=== PATIENT | male | born 1960 | race Two or more races ===

== ENCOUNTER 2016-05-12 13:30 | Outpatient (CLI) | payer MEDICARE, MEDICAID ==
[~2016-05-12 13:30] MED LIST: ACET-868 PO; AMLO2.5T PO; ATOR40TA PO; BENA20TA2 PO; CLON0.1T PO; DOCU-270 PO; ESCI10TA PO; ESOM40CA52 PO; INSU100V10 SQ; INSU100V3 SQ; LORA1TAB82 PO; METF500T4 PO; METO50TA3 PO; OXCA300T PO; RISP0.2515 PO; ZINC220T PO; ZOLP5TAB7 PO
== END 2016-05-12 23:59 | disposition home or self-care (01) ==
LOC: WOU 13:30
PROVIDERS: ATTEND Specialist
DX: S81.812A Laceration without foreign body, left lower leg, initial encounter (principal); W18.2XXA Fall in (into) shower or empty bathtub, initial encounter; Z91.81 History of falling; Y93.E1 Activity, personal bathing and showering; Y92.091 Bathroom in other non-institutional residence as the place of occurrence of the external cause; Z89.511 Acquired absence of right leg below knee; F21 Schizotypal disorder; F17.200 Nicotine dependence, unspecified, uncomplicated; I10 Essential (primary) hypertension; E78.5 Hyperlipidemia, unspecified; E11.9 Type 2 diabetes mellitus without complications; Z79.4 Long term (current) use of insulin
CPT/HCPCS: A6402; G0463

== ENCOUNTER 2016-05-19 13:55 | Outpatient (CLI) | payer MEDICARE, MEDICAID | END 2016-05-19 23:59 | disposition home or self-care (01) | DX: S81.811D Laceration without foreign body, right lower leg, subsequent encounter (principal); W18.2XXD Fall in (into) shower or empty bathtub, subsequent encounter; F21 Schizotypal disorder; Z89.511 Acquired absence of right leg below knee; F17.200 Nicotine dependence, unspecified, uncomplicated; Z88.1 Allergy status to other antibiotic agents; E11.9 Type 2 diabetes mellitus without complications; E78.5 Hyperlipidemia, unspecified; E11.42 Type 2 diabetes mellitus with diabetic polyneuropathy ==

== ENCOUNTER 2016-06-23 13:25 | Outpatient (CLI) | payer MEDICARE, MEDICAID | END 2016-06-23 23:59 | LOC: WOU 13:25 | PROVIDERS: ATTEND Specialist | DX: S80.212A Abrasion, left knee, initial encounter (principal); W05.0XXA Fall from non-moving wheelchair, initial encounter; Y92.89 Other specified places as the place of occurrence of the external cause; E11.9 Type 2 diabetes mellitus without complications; F25.0 Schizoaffective disorder, bipolar type; Z89.511 Acquired absence of right leg below knee; F17.200 Nicotine dependence, unspecified, uncomplicated; Z88.1 Allergy status to other antibiotic agents; I10 Essential (primary) hypertension | CPT/HCPCS: G0463 ==

== ENCOUNTER 2016-07-04 14:07 | Emergency (ER) | payer MEDICARE, MEDICAID ==
[~2016-07-04] VITALS: Ht 177.8 cm; Wt 106.6 kg
--- NOTE | 2016-07-04 14:26 | NUR ---
called in the WR, patient is not around
[2016-07-04 15:22] VITALS: BP 147/93
== END 2016-07-04 16:31 | disposition home or self-care (01) ==
LOC: ER 14:16
DX: H60.91 Unspecified otitis externa, right ear (principal); I10 Essential (primary) hypertension; E11.9 Type 2 diabetes mellitus without complications; F17.210 Nicotine dependence, cigarettes, uncomplicated; F10.20 Alcohol dependence, uncomplicated; F32.9 Major depressive disorder, single episode, unspecified; F41.9 Anxiety disorder, unspecified; I25.10 Atherosclerotic heart disease of native coronary artery without angina pectoris; Z79.4 Long term (current) use of insulin; Z88.1 Allergy status to other antibiotic agents; Z88.8 Allergy status to other drugs, medicaments and biological substances
CPT/HCPCS: 99283; A4606; Z7610

== ENCOUNTER 2016-07-21 13:35 | Outpatient (CLI) | payer MEDICARE, MEDICAID | END 2016-07-21 23:59 | disposition home health service (06) | LOC: WOU 13:35 | PROVIDERS: ATTEND Specialist | DX: S81.011A Laceration without foreign body, right knee, initial encounter (principal); W05.0XXA Fall from non-moving wheelchair, initial encounter; Y92.89 Other specified places as the place of occurrence of the external cause; Z89.511 Acquired absence of right leg below knee; F31.0 Bipolar disorder, current episode hypomanic; F17.200 Nicotine dependence, unspecified, uncomplicated; I10 Essential (primary) hypertension; E11.42 Type 2 diabetes mellitus with diabetic polyneuropathy; Z83.3 Family history of diabetes mellitus; Z81.8 Family history of other mental and behavioral disorders; Z82.49 Family history of ischemic heart disease and other diseases of the circulatory system; Z80.9 Family history of malignant neoplasm, unspecified | CPT/HCPCS: 11042; 82962; A6402 ==

== ENCOUNTER 2017-08-13 11:25 | Emergency (ER) | payer MEDICARE, MEDICAID ==
[~2017-08-13] VITALS: Ht 167.6 cm; Wt 104.3 kg
[~2017-08-13 11:25] MED LIST changes: -AMLO2.5T PO; +AMLO2.5T3 PO; -BENA20TA2 PO; +BENA20TA9 PO; +LORA-259 PO; -LORA1TAB82 PO; +METF-440 PO; -METF500T4 PO; +METO50TA16 PO; -METO50TA3 PO; -OXCA300T PO; +OXCA300T15 PO; -ZOLP5TAB7 PO; +ZOLP5TAB8 PO
--- NOTE | 2017-08-13 11:40 | NUR ---
PT REC'D TO ER VIA EMS LEFT LEG CUT TUESDAY WOUND CHECK VSS VLADIMIR LINDSAY . AWAITING EVALUATION BY ER PROVIDER.
[2017-08-13] MEDS ORDERED: INSU100I26 SQ (11:58)
[2017-08-13] MEDS ORDERED: BENA5TAB5 PO (11:58)
[2017-08-13] MEDS ORDERED: FAMO20TA8 PO (11:58)
[2017-08-13] MEDS ORDERED: POTA20TA83 PO (11:58)
[2017-08-13] MEDS ORDERED: CARV6.252 PO (11:58)
--- NOTE | 2017-08-13 13:38 | NUR ---
CALLED TRANSP[facility] [phone] [facility] [address] TRIP NUMBER [id number]
--- NOTE | 2017-08-13 13:49 | NUR ---
PT GIVEN URINAL FELL BACK TO SLEEPAWAITING EVALUATION BY ER PROVIDER.
--- NOTE | 2017-08-13 15:47 | NUR ---
PT. VERBALIZED UNDERSTANDING OF AFTERCARE INSTRUCTIONS.
--- NOTE | 2017-08-13 15:49 | NUR ---
Patient discharged to home in stable condition. Written and verbal after care instructions given. Patient verbalizes understanding of instruction.Patient discharged to home in stable condition. Written and verbal after care instructions given. Patient verbalizes understanding of instruction.
[2017-08-13 15:50] VITALS: BP 129/82
== END 2017-08-13 15:53 | disposition home or self-care (01) ==
LOC: ER 11:27
DX: L03.116 Cellulitis of left lower limb (principal); G89.29 Other chronic pain; E11.9 Type 2 diabetes mellitus without complications; E66.9 Obesity, unspecified; F32.9 Major depressive disorder, single episode, unspecified; F41.9 Anxiety disorder, unspecified; I10 Essential (primary) hypertension; I25.10 Atherosclerotic heart disease of native coronary artery without angina pectoris; N40.0 Benign prostatic hyperplasia without lower urinary tract symptoms; F10.10 Alcohol abuse, uncomplicated; F17.200 Nicotine dependence, unspecified, uncomplicated; Z79.4 Long term (current) use of insulin; Z89.511 Acquired absence of right leg below knee; Z88.1 Allergy status to other antibiotic agents; Z88.8 Allergy status to other drugs, medicaments and biological substances
CPT/HCPCS: 82962; 99283; A4606; Z7610

== ENCOUNTER 2024-03-16 19:02 | Emergency (ER) | payer MEDICARE, OTHER ==
[~2024-03-16] VITALS: Ht 162.6 cm; Wt 108.9 kg
[~2024-03-16 19:02] MED LIST changes: -ACET-868 PO; -AMLO2.5T3 PO; -BENA20TA9 PO; +BENA5TAB5 PO; +CARV6.252 PO; -DOCU-270 PO; -ESOM40CA52 PO; +FAMO20TA8 PO; +INSU100I26 SQ; -INSU100V10 SQ; -LORA-259 PO; -METF-440 PO; -METO50TA16 PO; +POTA20TA83 PO; -ZINC220T PO
[2024-03-16 20:17] LABS: BASOPHILS # (AUTO) 0.1 K/uL (0.0-0.2); EOSINOPHILS # (AUTO) 0.1 K/uL (0.0-0.7); EOSINOPHILS % (AUTO) 1.2 % (0.0-6.0); HEMATOCRIT 50 % (39-51); HEMOGLOBIN 17.4 g/dL (13.5-17.5); LYMPHOCYTES # (AUTO) 0.9 K/uL (0.8-4.8); LYMPHOCYTES % (AUTO) 11.6 % (20.0-44.0); MEAN CORPUSCULAR HEMOGLOBIN 33 PG (26.0-33.0); MEAN CORPUSCULAR HGB CONC 35 g/dl (31.0-36.0); MEAN CORPUSCULAR VOLUME 94 fL (80-96); MONOCYTES # (AUTO) 0.5 K/uL (0.1-1.30); MONOCYTES % (AUTO) 6.2 % (2.0-12.0); PLATELET COUNT (AUTO) 179 K/uL (150-450); RED BLOOD CELL COUNT(AUTO) 5.29 MIL/uL (4.5-6.0); RED CELL DISTRIBUTION WIDTH 13.6 % (11.5-15.0); WHITE BLOOD COUNT (AUTO) 7.6 K/uL (4.3-11.0)
[2024-03-16 20:45] LABS: CALCIUM, SERUM 9.1 mg/dL (8.5-10.1); CREATININE 0.9 mg/dL (0.6-1.3); POTASSIUM 3.9 mmol/L (3.5-5.1)
[2024-03-16 20:48] LABS: INR 0.97 (0.91-1.10); PARTIAL THROMBOPLASTIN TIME 27.5 SEC (24.3-34.3); PROTHROMBIN TIME 10.3 SECS (9.2-11.1)
[2024-03-16 20:51] LABS: ALBUMIN 3.4 g/dL (3.4-5.0); BILIRUBIN,DIRECT 0.1 mg/dL (0.0-0.2); BILIRUBIN,TOTAL 0.5 mg/dL (0.2-1.0); TOTAL PROTEIN, SERUM 6.5 g/dL (6.4-8.2)
[2024-03-16 23:48] VITALS: BP 153/73; TEMP 98.5; O2SAT 96
== END 2024-03-16 23:49 | disposition home or self-care (01) ==
LOC: ER 19:16
DX: E11.9 Type 2 diabetes mellitus without complications (principal); R79.9 Abnormal finding of blood chemistry, unspecified; F17.200 Nicotine dependence, unspecified, uncomplicated; F32.A Depression, unspecified; F41.9 Anxiety disorder, unspecified; I10 Essential (primary) hypertension; I25.10 Atherosclerotic heart disease of native coronary artery without angina pectoris; N40.0 Benign prostatic hyperplasia without lower urinary tract symptoms; Z79.899 Other long term (current) drug therapy; Z88.1 Allergy status to other antibiotic agents; Z89.511 Acquired absence of right leg below knee
CPT/HCPCS: 36415; 80048-TC; 80076-TC; 85025-TC; 85730-TC; 86850-TC

== ENCOUNTER 2024-11-30 12:16 | Inpatient (IN) | payer MEDICARE, OTHER ==
[~2024-11-30] VITALS: Ht 177.8 cm; Wt 83.1 kg
[2024-11-30] VITALS (8 sets, daily range): BP systolic 105–123; BP diastolic 67–80; TEMP 98.1–98.9; O2SAT 96–99
[2024-11-30 13:14] LABS: PLATELET COUNT (AUTO) 206 K/uL (150-450); RED BLOOD CELL COUNT(AUTO) 4.39 MIL/uL (4.5-6.0); RED CELL DISTRIBUTION WIDTH 12.8 % (11.5-15.0); WHITE BLOOD COUNT (AUTO) 8.5 K/uL (4.3-11.0)
[2024-11-30 13:33] LABS: ALCOHOL, BLOOD < 3 mg/dL (0-10)
[2024-11-30 13:40] LABS: ASPARTATE AMINOTRANSFERASE 20 U/L (15-37); CALCIUM, SERUM 8.3 mg/dL (8.5-10.1); CREATININE 0.8 mg/dL (0.6-1.3); TOTAL PROTEIN, SERUM 5.7 g/dL (6.4-8.2); UREA NITROGEN, BLOOD 7 mg/dL (7-18)
[2024-11-30 13:55] LABS: APPEARANCE,URINE CLEAR (CLEAR); BLOOD, URINE Negative Ery/uL (NEGATIVE); LEUKOCYTE ESTERASE ,URINE Moderate (NEGATIVE); UGLUCOSE Negative (NEGATIVE)
[2024-11-30 13:56] LABS: ADD URINE CULTURE YES; NITRITE, URINE NEGATIVE (NEGATIVE); SQUAMOUS EPITHELIAL CELL,UR None Seen /HPF (None Seen)
[2024-11-30 13:59] LABS: SODIUM SERUM 110 mmol/L (136-145)
[2024-11-30 14:00] LABS: AMPHETAMINE, URINE NEGATIVE (NEGATIVE); BARBITURATE, URINE NEGATIVE (NEGATIVE); BENZODIAZEPINE, URINE NEGATIVE (NEGATIVE); CANNABINOID, URINE NEGATIVE (NEGATIVE); COCCAINE, URINE NEGATIVE (NEGATIVE); OPIATE, URINE NEGATIVE (NEGATIVE)
[2024-11-30] MEDS ORDERED: ONDANSETRON HCL/PF 4 MG/2 ML VIAL IVP PRN (14:30)
[2024-11-30] MEDS ORDERED: MORPHINE SULFATE INJ 2 MG/ML DISP.SYRIN IV PRN (14:30)
[2024-11-30] MEDS ORDERED: ACETAMINOPHEN 325 MG TABLET PO PRN (14:30)
[2024-11-30] MEDS ORDERED: DEXTROSE 50%-WATER 50 ML DISP.SYRIN IV PRN (14:30)
[2024-11-30] MEDS ORDERED: hydrALAZINE HCL IV 20 MG VIAL IV PRN (14:30)
[2024-11-30] MEDS: SULFAMETHOXAZOLE/TRIMETHOPRIM 10 ML in IV D5W 250 ML IV ONE (14:59)
[2024-11-30] MEDS: IV NS 0.9% 1,000 ML BAG IV ONE (14:59)
[2024-11-30] MEDS ORDERED: ZINC56.713 TP (15:00)
[2024-11-30] MEDS ORDERED: KETO15CR2 TP (15:00)
[2024-11-30] MEDS ORDERED: LOSA100T31 PO (15:00)
[2024-11-30] MEDS ORDERED: INSU100I47 SQ (15:00)
[2024-11-30] MEDS ORDERED: AMLO2.5T2 PO (15:00)
[2024-11-30] MEDS ORDERED: METF-442 PO (15:00)
[2024-11-30] MEDS ORDERED: PALI234D IM (15:00)
[2024-11-30] MEDS ORDERED: ARIP10TA9 PO (15:00)
[2024-11-30] MEDS ORDERED: PARO10TA4 PO (15:00)
[2024-11-30] MEDS ORDERED: PANT40TA2 PO (15:00)
[2024-11-30] MEDS ORDERED: FINA5TAB11 PO (15:00)
[2024-11-30] MEDS ORDERED: ROPI4TAB6 PO (15:00)
[2024-11-30] MEDS ORDERED: LORA-258 PO (15:00)
[2024-11-30] MEDS ORDERED: GLUC1SYR SQ (15:00)
[2024-11-30] MEDS ORDERED: LORA10TA7 PO (15:00)
[2024-11-30] MEDS ORDERED: ASPI-1169 PO (15:00)
[2024-11-30] MEDS ORDERED: MELA5TAB PO (15:00)
[2024-11-30] MEDS ORDERED: POLY17PO4 PO (15:00)
[2024-11-30] MEDS ORDERED: MAG-135 PO (15:03)
[2024-11-30] MEDS ORDERED: IPRA3AMP22 HHN (15:03)
[2024-11-30] MEDS ORDERED: ACET-868 PO (15:03)
[2024-11-30] MEDS ORDERED: TRAM50TA2 PO (15:03)
[2024-11-30] MEDS ORDERED: GUAI600T53 PO (15:03)
[2024-11-30] MEDS ORDERED: CLON0.2T PO (15:03)
[2024-11-30] MEDS ORDERED: OXCARBAZEPINE 150 MG TABLET PO SCH (17:00)
[2024-11-30] MEDS ORDERED: INSULIN GLARGINE, 100 UNIT/ML CARTRIDGE SQ SCH (17:00)
[2024-11-30] MEDS: INSULIN GLARGINE, 100 UNIT/ML CARTRIDGE SQ SCH (17:00)
[2024-11-30] MEDS: LORAZEPAM 0.5 MG TABLET PO SCH (17:32)
[2024-11-30] MEDS: CARVEDILOL 6.25 MG TABLET PO SCH (17:34)
[2024-11-30] MEDS: BLOOD SUGAR DIAGNOSTIC 1 EACH STRIP VI SCH (17:34)
[2024-11-30] MEDS: INSULIN REGULAR, HUMAN 100 UNIT/ML 3 ML VIAL SQ PRN (17:40)
[2024-11-30 19:09] LABS: PHOSPHORUS 2.9 mg/dL (2.5-4.9)
[2024-11-30 19:20] LABS: CALCIUM, SERUM 8.0 mg/dL (8.5-10.1); CREATININE 0.8 mg/dL (0.6-1.3); UREA NITROGEN, BLOOD 8.0 mg/dL (7-18)
[2024-11-30 19:57] LABS: SODIUM SERUM 120.0 mmol/L (136-145)
[2024-11-30] MEDS: IV D5W 500 ML IV STA (20:24)
[2024-11-30] MEDS: IV D5W 1,000 ML IV PRN (20:57)
[2024-11-30] MEDS: FINASTERIDE (5 MG) 5 MG TABLET PO SCH (21:10)
[2024-11-30] MEDS: ATORVASTATIN 40 MG TABLET PO SCH (21:10)
[2024-11-30] MEDS: LORAZEPAM INJ 2 MG/ML VIAL IV PRN (21:11)
[2024-11-30] MEDS: HEPARIN SODIUM, PORCINE 5000 UNITS/1 ML VIAL SQ SCH (21:12)
[2024-11-30 21:17] LABS: CALCIUM, SERUM 8.2 mg/dL (8.5-10.1); CREATININE 0.9 mg/dL (0.6-1.3); SODIUM SERUM 122.0 mmol/L (136-145); UREA NITROGEN, BLOOD 8.0 mg/dL (7-18)
[2024-11-30] MEDS: *INSULIN REGULAR(HUMULIN R)HUM 100 UNIT/ML VIAL SQ PRN (21:22)
[2024-11-30] MEDS ORDERED: DESMOPRESSIN 4 MCG/ML AMPUL ONE (23:29)
[2024-11-30] MEDS: DESMOPRESSIN 4 MCG/ML AMPUL IV ONE (23:46)
[2024-12-01] VITALS (29 sets, daily range): BP systolic 100–167; BP diastolic 63–117; TEMP 97.9–98.4; O2SAT 94–100
[2024-12-01 00:42] LABS: CALCIUM, SERUM 8.5 mg/dL (8.5-10.1); CREATININE 0.8 mg/dL (0.6-1.3); SODIUM SERUM 126.0 mmol/L (136-145); UREA NITROGEN, BLOOD 8.0 mg/dL (7-18)
[2024-12-01] MEDS: IV D5W 1,000 ML IV STA (01:00)
[2024-12-01 03:08] LABS: CALCIUM, SERUM 7.7 mg/dL (8.5-10.1); CREATININE 0.9 mg/dL (0.6-1.3); UREA NITROGEN, BLOOD 8.0 mg/dL (7-18)
[2024-12-01 03:11] LABS: SODIUM SERUM 117.0 mmol/L (136-145)
[2024-12-01 04:45] LABS: PLATELET COUNT (AUTO) 209 K/uL (150-450); RED BLOOD CELL COUNT(AUTO) 4.58 MIL/uL (4.5-6.0); RED CELL DISTRIBUTION WIDTH 12.8 % (11.5-15.0); WHITE BLOOD COUNT (AUTO) 6.2 K/uL (4.3-11.0)
[2024-12-01] MEDS: IV D5W 1,000 ML IV PRN (05:24)
[2024-12-01 05:40] LABS: ASPARTATE AMINOTRANSFERASE 14.0 U/L (15-37); CALCIUM, SERUM 8.1 mg/dL (8.5-10.1); CREATININE 0.7 mg/dL (0.6-1.3); PHOSPHORUS 2.9 mg/dL (2.5-4.9); TOTAL PROTEIN, SERUM 5.4 g/dL (6.4-8.2); UREA NITROGEN, BLOOD 8.0 mg/dL (7-18)
[2024-12-01 05:42] LABS: SODIUM SERUM 118.0 mmol/L (136-145)
[2024-12-01] MEDS: PANTOPRAZOLE 40 MG TABLET.DR PO SCH (08:04)
[2024-12-01] MEDS: FAMOTIDINE (20 MG) 20 MG TABLET PO SCH (08:04)
[2024-12-01] MEDS: PAROXETINE HCL 20 MG TABLET PO SCH (08:55)
[2024-12-01] MEDS: ARIPIPRAZOLE 5 MG TABLET PO SCH (08:55)
[2024-12-01] MEDS: LOSARTAN POTASSIUM 50 MG TABLET PO SCH (08:57)
[2024-12-01] MEDS: ASPIRIN 81 MG TAB.CHEW PO SCH (08:57)
[2024-12-01] MEDS: AMLODIPINE BESYLATE 5 MG TABLET PO SCH (08:59)
[2024-12-01] MEDS: LORATADINE 10 MG TABLET PO SCH (08:59)
[2024-12-01] MEDS ORDERED: ESCITALOPRAM OXALATE (10 MG) 10 MG TABLET PO SCH (09:00)
[2024-12-01 09:03] LABS: CALCIUM, SERUM 8.3 mg/dL (8.5-10.1); CREATININE 0.7 mg/dL (0.6-1.3); UREA NITROGEN, BLOOD 8.0 mg/dL (7-18)
[2024-12-01 09:57] LABS: SODIUM SERUM 118.0 mmol/L (136-145)
[2024-12-01] MEDS: MAGNESIUM OXIDE 400 MG TABLET PO ONE (11:36)
[2024-12-01] MEDS: POTASSIUM CHLORIDE 20 MEQ TAB.PRT.SR PO ONE (11:36)
[2024-12-01 12:41] LABS: CALCIUM, SERUM 8.2 mg/dL (8.5-10.1); CREATININE 0.9 mg/dL (0.6-1.3); UREA NITROGEN, BLOOD 8.0 mg/dL (7-18)
[2024-12-01 12:43] LABS: SODIUM SERUM 119.0 mmol/L (136-145)
[2024-12-01 23:08] LABS: CALCIUM, SERUM 8.6 mg/dL (8.5-10.1); CREATININE 0.9 mg/dL (0.6-1.3); SODIUM SERUM 123.0 mmol/L (136-145); UREA NITROGEN, BLOOD 11.0 mg/dL (7-18)
[2024-12-02] VITALS: BP 145/100; TEMP 98.1; O2SAT 95
[2024-12-02] MEDS: MAGNESIUM HYDROXIDE 30 ML UDC PO PRN (00:20)
[2024-12-02 08:00] VITALS: BP 165/81; TEMP 97.5; O2SAT 97
[2024-12-02] MEDS: MEROPENEM 1 G in IV NS 0.9% 100 ML IV SCH (09:26)
[2024-12-02 12:33] LABS: CALCIUM, SERUM 8.8 mg/dL (8.5-10.1); CREATININE 0.9 mg/dL (0.6-1.3); SODIUM SERUM 128.0 mmol/L (136-145); UREA NITROGEN, BLOOD 13.0 mg/dL (7-18)
[2024-12-02 16:00] VITALS: BP 147/95; TEMP 98.6; O2SAT 98
[2024-12-02 20:00] VITALS: BP 135/80; TEMP 97.6; O2SAT 98
[2024-12-03] VITALS: BP 133/78; TEMP 97.7; O2SAT 96
[2024-12-03 04:00] VITALS: BP 147/90; TEMP 97.8; O2SAT 97
[2024-12-03 06:32] LABS: CALCIUM, SERUM 9.2 mg/dL (8.5-10.1); CREATININE 0.9 mg/dL (0.6-1.3); SODIUM SERUM 131.0 mmol/L (136-145); UREA NITROGEN, BLOOD 16.0 mg/dL (7-18)
[2024-12-03 08:00] VITALS: BP 179/99; TEMP 97.9; O2SAT 99
[2024-12-03] MEDS ORDERED: NITROFURANTOIN MACROCRYSTAL 50 MG CAPSULE PO SCH (11:00)
[2024-12-03] MEDS: NITROFURANTOIN/MONOHYDRATE MACROCRYSTALS 100 MG CAPSULE PO SCH (11:29)
[2024-12-03 16:00] VITALS: BP 149/90; TEMP 98.2; O2SAT 97
[2024-12-03 20:00] VITALS: BP 158/98; TEMP 98.6; O2SAT 98
[2024-12-04 05:57] LABS: CALCIUM, SERUM 9.1 mg/dL (8.5-10.1); CREATININE 1.0 mg/dL (0.6-1.3); SODIUM SERUM 132.0 mmol/L (136-145); UREA NITROGEN, BLOOD 18.0 mg/dL (7-18)
[2024-12-04 08:00] VITALS: BP 144/94; TEMP 97.9; O2SAT 96
[2024-12-04 09:48] VITALS: BP 144/94
[2024-12-04] MEDS ORDERED: NITR100C15 PO (11:21)
== END 2024-12-04 17:17 | DRG 641 ==
LOC: ER 12:35 → ICU 15:15 → TELE 12-01 18:42 → MED 12-03 10:48
PROVIDERS: ADMIT Internal Medicine; ATTEND Internal Medicine
DX: R63.1 Polydipsia (principal); E87.1 Hypo-osmolality and hyponatremia; N39.0 Urinary tract infection, site not specified; F02.83 Dementia in other diseases classified elsewhere, unspecified severity, with mood disturbance; I25.10 Atherosclerotic heart disease of native coronary artery without angina pectoris; E11.51 Type 2 diabetes mellitus with diabetic peripheral angiopathy without gangrene; S01.112A Laceration without foreign body of left eyelid and periocular area, initial encounter; S80.211A Abrasion, right knee, initial encounter; G30.9 Alzheimer's disease, unspecified; F32.A Depression, unspecified; E78.5 Hyperlipidemia, unspecified; I10 Essential (primary) hypertension; F41.9 Anxiety disorder, unspecified; Z89.511 Acquired absence of right leg below knee; N40.0 Benign prostatic hyperplasia without lower urinary tract symptoms; Z98.890 Other specified postprocedural states; Z88.1 Allergy status to other antibiotic agents; Z79.84 Long term (current) use of oral hypoglycemic drugs; Z79.4 Long term (current) use of insulin; Z79.82 Long term (current) use of aspirin; Z79.899 Other long term (current) drug therapy; W19.XXXA Unspecified fall, initial encounter; Y92.9 Unspecified place or not applicable; Y99.9 Unspecified external cause status; S30.0XXA Contusion of lower back and pelvis, initial encounter; R29.6 Repeated falls; E86.9 Volume depletion, unspecified; E66.9 Obesity, unspecified; Z68.26 Body mass index [BMI] 26.0-26.9, adult; Z79.51 Long term (current) use of inhaled steroids; B96.1 Klebsiella pneumoniae [K. pneumoniae] as the cause of diseases classified elsewhere
CPT/HCPCS: 36415; 70450-TC; 70486-TC; 71045-TC; 72125-TC; 73521; 73700-TC; 80048-TC; 80053-TC; 80076-TC; 81001; 82533; 82962-TC; 83735-TC; 83935-TC; 84100-TC; 84295-TC; 84300-TC; 84443-TC; 84484-TC; 84550-TC; 85025-TC; 87081-TC; 87086-TC; 87186-TC; A4223; G0378; G0480; J1644; J1815; J2060; J2185; J2597; J2865; J7030; J7040; J7060; J7070